=== PATIENT | male | born 1945 | race Caucasian/White ===

== ENCOUNTER 2021-07-29 11:48 | Outpatient (CLI) | payer OTHER, SELFPAY ==
[2021-07-29 01:33] VITALS: BP 110/75; PULSE 88; RESP 18; TEMP 36.8; O2SAT 90
[2021-07-29 12:30] VITALS: BP 130/85; PULSE 59; RESP 16; TEMP 36.8; O2SAT 91; BMI 22.3
[2021-07-29 12:33] VITALS: BP 122/71; PULSE 89; RESP 18; TEMP 36.8; O2SAT 92
== END 2021-07-29 11:49 | disposition home or self-care (01) ==
LOC: OPS 11:54
PROVIDERS: Visit Provider Internal Medicine
DX: U07.1 COVID-19 (principal)
CPT/HCPCS: 96365

== ENCOUNTER 2021-09-25 08:06 | Inpatient (IN) | payer OTHER, MEDICARE, SELFPAY ==
[2021-09-25] VITALS (16 sets, daily range): BP systolic 122–155; BP diastolic 56–89; PULSE 89–91; RESP 11–26; TEMP 36.7; O2SAT 90–100; BMI 23.1
--- NOTE | 2021-09-25 08:07 | W.ED.SOB ---
HPI - SOB/Dyspnea General: Chief Complaint: ER Hold Stated Complaint: LOW O2 SATS Time Seen by Provider: 09/25/21 08:07 History of Present Illness: HPI Narrative: Mr Abdi is a 76-year-old gentleman with history of CAD, hypertension, hyperlipidemia, history of CABG who resides at a long term facility presents emergency department due to generalized symptoms. He reports that he overall does not feel well. He has difficulty reporting exactly how long this has been going on for but he thinks probably few weeks and has been gradual in onset. Today he was found to be hypoxemic on room air with oxygen saturation of 82% and cyanosis. He was placed on 4 L of oxygen, which he does not typically wear, which improved his oxygen saturation. Other than the generalized symptoms he does not report any other significant changes in health with exception of right neck swelling. Perhaps mild shortness of breath without cough. No fevers or chills. The patient has had increased falls of unclear circumstances. No other specific changes in health, exacerbating, relieving factors identified. Pertinent past history: other Onset (ago): week(s) Severity: moderate Known history of: other Review of Systems General: Reports: 10 or more systems reviewed and unremarkable except in HPI and below PFSH ED PFSH: Medical History (Updated 09/25/21 @ 19:07 by Tl Cifuentes MD) Aortic valve disease CAD (coronary artery disease) HLD (hyperlipidemia) HTN (hypertension) Surgical History (Updated 09/25/21 @ 19:04 by Tl Cifuentes MD) Aortic valve replaced History of cholecystectomy Hx of CABG Social History Smoking and tobacco status: former smoker Physical Exam Const: COMMON NORMALS: alert GENERAL APPEARANCE: cooperative and well developed HENMT: COMMON NORMALS: normocephalic and atraumatic HEAD & SCALP: normocephalic and atraumatic THROAT: posterior oropharynx normal Eye: COMMON NORMALS: conjunctivae normal CONJUNCTIVA: Yes conjunctivae normal SCLERA: sclerae normal OTHER: R eye prosthesis Neck/C-Spine: COMMON NORMALS: supple GENERAL: Yes trachea midline OTHER: Patient does have JVD, mild, no other appreciable specific masses or asymmetry noted Resp: COMMON NORMALS: normal respiratory effort EFFORT & INSPECTION: Yes able to speak in complete sentences AUSCULTATION: diminished lung sounds Cardio: COMMON NORMALS: regular rate and regular rhythm RATE: regular rate RHYTHM: regular rhythm GI: COMMON NORMALS: Soft to palpation PALPATION: Yes Soft to palpation and No Tenderness to palpation present (GI) PERCUSSION: normal to percussion Extremity: GENERAL: Yes normal exam except as noted and No edema Neuro: COMMON NORMALS: moves all extremities SENSORIUM/ORIENTATION: Yes alert and No Orientation impaired Psych: COMMON NORMALS: mental status grossly normal and Normal thought process present THOUGHT PROCESS: Normal thought process present Course ED course: - Patient was seen and evaluated by me at bedside - Patient placed on cardiac monitors, IV access obtained - Initial evaluation notable for exam as above, supplemental oxygen with increased work of breathing - Labs notable for concerning findings. There is no leukocytosis and hemoglobin is normal. Metabolic panel with fairly significant derangements, sodium is mildly low, potassium is mildly elevated and bicarb is mildly decreased. Creatinine is elevated at 1.4 with unclear baseline. Transaminitis of unclear significance. Initial troponin is elevated and BNP is elevated. Procalcitonin is negative. - Imaging notable for no acute findings on head CT or cervical spine CT which were obtained given report of possible multiple falls that the patient does not have clear recollection of. Chest x-ray without acute abnormality. Given laboratory study abnormalities including transaminitis I started further evaluation with ultrasound which did not reveal obvious cause, patient has had cholecystectomy. No clear cause for transaminitis and no clear cause identified thus far for hypoxemia therefore additional CT imaging was warranted and obtained. No evidence of pulmonary embolism. The patient does have evidence of volume overload including bilateral pleural effusions which were not appreciated on chest x-ray. - The patient experience challenging ED course with refusal of multiple tests. I discussed at length the results of ED evaluation and initially strongly recommended admission and further testing given the patient's elevated troponin, evidence of fluid overload, new oxygen requirement, and transaminitis of unclear etiology. Initially the patient was adamantly against being admitted. I had extensive discussion with him regarding risks and benefits, while I do believe that the patient has some degree of age-related cognitive decline ultimately I believe that he does have capacity to make medical decisions. He participates meaningfully in conversations. He has logical questions and understands answers. He appears to be able to integrate information correctly. He recalls conversations from earlier in ED course and integrates this information. Thought process linear and goal oriented. Furthermore, in order to perform additional laboratory studies and imaging, I would likely have to chemically restrain the patient which I do not believe is appropriate in this scenario given my experience with the patient. - The patient planned to leave AGAINST MEDICAL ADVICE. - During process of working on transporting patient back to his care facility he talked with a friend and subsequently agreed to be admitted and was agreeable for further testing. Delta troponin is pending at time of admission. - Upon serial reexamination after treatment the patient was similar - Based on patient history, evaluation, labs, and imaging as interpreted the most likely cause of the patient's condition is multifactorial. I believe that the majority of his abnormalities are likely secondary to peripheral volume overload as he has anasarca and pleural effusions in the context of new oxygen requirement. He did endorse that he took himself off of his Lasix about 1 week ago. I ordered acute hepatitis studies which are pending at time of admission. Etiology of transaminitis may be more likely related to a hepatorenal or cardio hepatorenal type picture though blood pressure is adequate and has been throughout entirety of ED evaluation, perhaps patient is mildly intravascularly depleted even though he is overall fluid up. - The results of ED evaluation were discussed with the patient including plan for admission due to requirement for level of care not available if discharged to prevent significant worsening/deterioration. - Admitting service was contacted and Dr Cifuentes with the hospitalist service agreed to admit the patient - Patient was admitted without further deterioration or significant events. Note: Click bubbles or prepopulated bonds in note writing are used for assistance with data collection and billing and are inherently more limited than narrative and other text portions of this note. Please use narrative for additional clinical history and defer to narrative/free test for any case of contradictory information. If information appears in only free text or click bubble it should be considered present or absent as reported. Please contact note telegraphic typewriter operator chief for clarifications of clinical information or contradictory information. MDM is a brief summary, contradictory or erroneous seeming information should be clarified and full note should be reviewed. Vital Signs: Vital signs: Vital Signs Temperature 98.1 F 09/25/21 08:08 Pulse Rate 95 09/26/21 12:53 Respiratory Rate 16 09/26/21 12:53 Blood Pressure 147/73 09/26/21 12:53 Pulse Oximetry 95 09/26/21 12:53 MDM - SOB/Dyspnea Medical Decision Making 76-year-old gentleman with history of hypertension, hyperlipidemia, CAD, heart failure who took himself off Lasix about 1 week ago presenting with new oxygen requirement in addition to falls and other concerns. Overall very challenging ED encounter, laboratory studies notable for likely ASHLEE, transaminitis, elevated troponin, and evidence of volume overload. Patient initially did express desire to leave AMA however subsequently was agreeable to admission. He was admitted to the hospital for further management, I believe overall abnormalities are related to volume overload. Medical Records I reviewed the patient's medical records. Lab Data I reviewed the patient's lab results. : 09/26/21 07:40 09/26/21 07:40 Labs/Radiology: Radiology Impressions Chest X-Ray 09/25/21 08:24 IMPRESSION: No acute chest abnormality. Cervical Spine CT 09/25/21 08:25 IMPRESSION: 1. No evidence of acute fracture or dislocation. 2. Left pericentral protrusion C5-C6 with moderate central canal stenosis. 3. Mild spondylitic changes. Head CT 09/25/21 08:25 IMPRESSION: 1. No evidence of intracranial hemorrhage or mass effect. 2. Moderate small vessel changes with moderate parenchymal volume loss. 3. 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 4. Bilateral scleral banding. Right globe prosthesis. 5. No acute intracranial findings. Abdomen Ultrasound 09/25/21 11:13 IMPRESSION: 1. Status post cholecystectomy. 2. Very small amount of free fluid adjacent to the liver and spleen and a small RIGHT pleural effusion. 3. Bilateral renal cysts. Chest/Abdomen/Pelvis CT 09/25/21 13:01 IMPRESSION: 1. No evidence of pulmonary embolus. 2. Small bilateral pleural effusions and compressive atelectasis in the lung bases. Recommend correlation for pneumonia. 3. Cardiomegaly. 4. Cirrhotic configuration to the liver with hepatomegaly. Prior cholecystectomy. 5. Large right renal cyst measuring 8.1 x 9.0 CM. No hydronephrosis. 6. Dense vascular calcification involving the abdominal aorta. No aneurysm. 7. Mild prostate enlargement measuring 4.2 CM. 8. Small amount of free fluid in the pelvis with diffuse body wall anasarca. 9. Enlarged anterior mediastinal, peribronchial and hilar lymph nodes nonspecific but may be reactive. Laboratory Results WBC 6.5 10^3/uL (4.0-10.0) 09/26/21 07:40 RBC 4.11 10^6/uL (4.1-5.3) 09/26/21 07:40 Hgb 12.2 g/dL (11.7-16.6) 09/26/21 07:40 Hct 40.0 % (42.0-52.0) L 09/26/21 07:40 MCV 97.3 fl (80-94) H 09/26/21 07:40 MCH 29.7 pg (28.0-34.0) 09/26/21 07:40 MCHC 30.5 g/dL (30.0-36.0) 09/26/21 07:40 RDW 16.0 % (12.1-15.1) H 09/26/21 07:40 Plt Count 180 10^3/cmm (130-400) 09/26/21 07:40 MPV 10.7 fL (7.4-10.4) H 09/26/21 07:40 Neut % (Auto) 79.6 % 09/26/21 07:40 Lymph % (Auto) 8.0 % 09/26/21 07:40 [place]aves % (Auto) 9.3 % 09/26/21 07:40 Eos % (Auto) 1.7 % 09/26/21 07:40 Baso % (Auto) 0.8 % 09/26/21 07:40 Neut # (Auto) 5.20 10^3/uL (1.8-7.7) 09/26/21 07:40 Lymph # (Auto) 0.5 10^3/uL (0.8-4.8) L 09/26/21 07:40 Chaves # (Auto) 0.6 10^3/uL (0.2-0.9) 09/26/21 07:40 Eos # (Auto) 0.1 10^3/uL (0.0-0.8) 09/26/21 07:40 Baso # (Auto) 0.1 10^3/uL (0.0-0.1) 09/26/21 07:40 Nucleated RBC % (auto) 0 % 09/26/21 07:40 Nucleated RBCs # 0.0 /100WBC 09/26/21 07:40 Sodium 140 mmol/L (136-145) 09/26/21 07:40 Potassium 3.8 mmol/L (3.5-5.1) 09/26/21 07:40 Chloride 103 mmol/L (98-107) 09/26/21 07:40 Carbon Dioxide 27 mmol/L (22-29) 09/26/21 07:40 Anion Gap 13.8 (5-19) 09/26/21 07:40 BUN 31 mg/dL (8-23) H 09/26/21 07:40 Creatinine 0.8 mg/dL (0.7-1.2) 09/26/21 07:40 GFR Calculation Not Reportable 09/26/21 07:40 Glucose 111 mg/dL (65-115) 09/26/21 07:40 Calculated Osmolality 297 mOsm/kg (285-295) H 09/26/21 07:40 Calcium 7.9 mg/dL (8.5-10.5) L 09/26/21 07:40 Total Bilirubin 0.8 mg/dL (0.15-1.2) 09/26/21 07:40 AST 149 U/L (0-40) H 09/26/21 07:40 ALT 282 U/L (0-41) H 09/26/21 07:40 Alkaline Phosphatase 74 IU/L (40-130) 09/26/21 07:40 Ammonia 20 umol/L (16-60) 09/25/21 19:00 Troponin T Gen 5 ng/L 113 ng/L (0-15) H* 09/26/21 07:40 Troponin T Baseline 101 ng/L (0-15) H* 09/25/21 09:23 C-Reactive Protein 18.2 mg/L (0.0-4.9) H 09/25/21 09:23 NT-Pro-B Natriuret Pep 22721 pg/mL (0-450) H 09/25/21 09:23 Total Protein 6.0 g/dL (6.6-8.7) L 09/26/21 07:40 Albumin 3.6 g/dL (3.5-5.2) 09/26/21 07:40 Globulin 2.4 g/dL (1.3-4.6) 09/26/21 07:40 Lipase 19 U/L (13-60) 09/25/21 09:23 Procalcitonin 0.17 ng/mL (0-0.5) 09/25/21 09:23 TSH 4.94 uIU/mL (0.27-4.20) H 09/25/21 09:23 Free T4 1.03 ng/dL (0.82-1.77) 09/25/21 09:23 Urine Color Colorless (Yellow) 09/26/21 05:48 Urine Appearance Clear (CLEAR) 09/26/21 05:48 Urine pH 5 (5-7) 09/26/21 05:48 Ur Specific [place] 1.010 (1.005-1.030) 09/26/21 05:48 Urine Protein Neg (Negative) 09/26/21 05:48 Urine Glucose (UA) Norm (Normal) 09/26/21 05:48 Urine Ketones Negative (Negative) 09/26/21 05:48 Urine Blood Neg (Negative) 09/26/21 05:48 Urine Nitrate Negative (Negative) 09/26/21 05:48 Urine Bilirubin Neg (Negative) 09/26/21 05:48 Urine Urobilinogen Norm mg/dL (Negative) 09/26/21 05:48 Ur Leukocyte Esterase Negative (Negative) 09/26/21 05:48 Ur Random Urea Nitrogn 156 mg/dL 09/26/21 05:48 Urine Creatinine 10 mg/dL (39-259) L 09/26/21 05:48 Coronavirus 229E (PCR) Not detected (NOT DETECT) 09/25/21 08:50 Hepatitis A IgM Ab Non-reactive (Nonreactive) 09/25/21 09:23 Hep Bs Antigen Non-reactive (Nonreactive) 09/25/21 09:23 Hep B Core IgM Ab Non-reactive (Nonreactive) 09/25/21 09:23 Hepatitis C Antibody Non-reactive (Nonreactive) 09/25/21 09:23 SARS-CoV-2 (PCR) Not detected (NOT DETECT) 09/25/21 08:50 EKG Data EKG 1: I personally reviewed and interpreted this EKG as follows: EKG Interpretation Date: 09/25/21 EKG interpretation time: 08:53 Interpretation: Twelve-lead EKG shows a regular rhythm at a rate of 89. MN interval not present, QRS duration 149. Abnormal axis. Interpretation: Ventricularly paced rhythm EKG 2: I personally reviewed and interpreted this EKG as follows: EKG Interpretation Date: 09/25/21 EKG interpretation time: 10:40 Interpretation: Twelve-lead EKG shows a regular rhythm at a rate of 89. MN interval not present, QRS duration 147, QRS duration 469. Abnormal axis. Interpretation: Electronically paced rhythm EKG 3: I personally reviewed and interpreted this EKG as follows: EKG Interpretation Date: 09/25/21 EKG interpretation time: 14:25 Interpretation: Twelve-lead EKG shows a regular rhythm at a rate of 89. No MN interval, constriction 156, QTc 470. Abnormal axis Interpretation: Ventricularly paced rhythm Critical Care Time Critical Care Time: Critical Care Time: Yes Total Critical Care Time: 35 Attestation: Due to a high probability of clinically significant, possibly life threatening deterioration, the patient required my highest level of attention and preparedness to intervene emergently and I personally spent this critical care time directly and personally managing the patient. This critical care time included obtaining a history; examining the patient; pulse oximetry; ordering and review of laboratory and imaging studies; arranging urgent treatment with development of a management plan; evaluation of patient's response to treatment; frequent reassessment; and, discussions with other providers as applicable. It was exclusive of separately billable procedures. Discharge Plan Discharge Patient Disposition: Left Against Medical Advice Clinical Impression: Hyponatremia, Hyperkalemia, Creatinine elevation, Transaminitis, Elevated troponin, CRP elevated, Elevated TSH, Cervical spinal stenosis, Pleural effusion, bilateral, Cirrhosis, Renal cyst, Enlarged prostate, Anasarca, Hypoxia, Lymphadenopathy Condition: Stable Discharge Orders: Discharge Order (Routine); Ordered 09/26/21 Ordered By: Tl Cifuentes Discharge ED (Routine); Ordered 09/26/21 Ordered By: Tl Cifuentes Discharge Diet: Cardiac Discharge Activity: Resume usual activity Coding Level of Care Code ED Sub Acute Care Nurse for Chg Fwd Exam Comprehensive
--- NOTE | 2021-09-25 08:24 | ECG_ITS ---
[facility] Test Date: 2021-09-25 Pat Name: Jon Abdi Department: Room: Gender: Male Waitress: : 1945 Requested By: Dre Taylor Order Number: [id number] Frankie MD: Monico Root M.D. Measurements Intervals [place] Rate: 89 P: NH: QRS: 219 QRSD: 149 T: 52 QT: 412 QTc: 503 Interpretive Statements ELECTRONIC VENTRICULAR PACEMAKER ABNORMAL RHYTHM ECG No previous ECG available for comparison Electronically Signed On 09-25-2021 18:30:36 DIGITAL ADVERTISING ANALYST by Monico Root M.D. [id number]
--- NOTE | 2021-09-25 08:24 | XR_ITS ---
WS: [id number] XR chest 1V portable [id number] REASON FOR EXAM: hypoxia FINDINGS: Cardiac device in place over the left chest with leads to the right atrium and right ventricular apex . Moderate tortuosity the thoracic aorta without aneurysmal dilatation. Cardiomegaly. Calcified granulomatous disease in both hemithoraces. No acute pulmonary parenchymal or pleural abnormality. XR/XR chest 1V portable [id number] IMPRESSION: No acute chest abnormality.
--- NOTE | 2021-09-25 08:25 | CT_ITS ---
WS: [id number] CT CERVICAL TRAUMA TECHNIQUE: Noncontrast CT of the cervical spine with coronal and sagittal reformatted images. CLINICAL INFORMATION: falls, memory disturbance COMPARISON: None. DLP: 1127.[address] scans at [facility] use at least one of these dose optimization techniques: automated e xposure control; mA and/or kV adjustment per patient size (includes targeted exams where dose is matc hed to clinical indication); or iterative reconstruction. FINDINGS: Straightening of the normal cervical lordosis. Mild spondylitic changes. Small disc osteophyte comple xes at C3-C4 and C5-C6 and C6-C7. Left pericentral protrusion C5-C6 with mild/moderate central canal stenosis. Normal craniocervical junction. Normal C1-C2 articulation. Dens is normal in appearance. No rmal occipital condyles. Normal C1 ring. No evidence of acute fracture or dislocation. Normal prevertebral soft tissues. Right thyroid nodule the largest measuring 10 mm. Mastoids air cells are well aerated. CT/CT cervical spin wo con* [id number] IMPRESSION: 1. No evidence of acute fracture or dislocation. 2. Left pericentral protrusion C5-C6 with moderate central canal stenosis. 3. Mild spondylitic changes.
--- NOTE | 2021-09-25 08:25 | CT_ITS ---
WS: [id number] CT HEAD TECHNIQUE: Noncontrast CT of the head obtained from the skullbase to the vertex. CLINICAL INFORMATION: falls, memory disturbance COMPARISON: None. DLP: 997.[address] scans at [facility] use at least one of these dose optimization techniques: automated e xposure control; mA and/or kV adjustment per patient size (includes targeted exams where dose is matc hed to clinical indication); or iterative reconstruction. FINDINGS: No evidence of intracranial hemorrhage or mass effect. Ventricular system and basal cisterns are salmon nt. Moderate small vessel changes with moderate parenchymal volume loss. Tiny chronic lacunar infarct s bilateral basal ganglia and right thalamus. Intracranial vascular calcification. Right globe prosth esis. Paranasal sinuses and mastoid air cells are well aerated. CT/CT head wo con* [id number] IMPRESSION: 1. No evidence of intracranial hemorrhage or mass effect. 2. Moderate small vessel changes with moderate parenchymal volume loss. 3. 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 4. Bilateral scleral banding. Right globe prosthesis. 5. No acute intracranial findings.
[2021-09-25 08:42] LABS: Basophils # 0.1 10^3/uL (0.0-0.1); Basophils % 0.6 %; Eosinophils % 0.2 %; Hematocrit 44.6 % (42.0-52.0); Hemoglobin 13.5 g/dL (11.7-16.6); Lymphocytes # 0.8 10^3/uL (0.8-4.8); Lymphocytes % 9.2 %; Mean Corpuscular HGB Conc 30.3 g/dL (30.0-36.0); Mean Corpuscular Hemoglobin 29.3 pg (28.0-34.0); Mean Corpuscular Volume 96.7 fl (80-94); Mean Platelet Volume 11.2 fL (7.4-10.4); Monocytes # 0.8 10^3/uL (0.2-0.9); Monocytes % 9.3 %; Neutrophils % 80.1 %; Nucleated Red Blood Cells % 0 %; Platelet Count 229 10^3/cmm (130-400); Red Blood Count 4.61 10^6/uL (4.1-5.3); Red Cell Distribution Width 16.4 % (12.1-15.1); White Blood Count 8.5 10^3/uL (4.0-10.0)
[2021-09-25 10:14] LABS: NT Pro B Type Natriuretic Pept 13309 pg/mL (0-450); Procalcitonin 0.17 ng/mL (0-0.5); Thyroid Stimulating Hormone 4.94 uIU/mL (0.27-4.20)
[2021-09-25 10:23] LABS: Troponin(5th) Baseline 101 ng/L (0-15)
--- NOTE | 2021-09-25 10:24 | ECG_ITS ---
[facility] Test Date: 2021-09-25 Pat Name: Jon Abdi Department: Room: Gender: Male General Practitioner: : 1945 Requested By: Dre Taylor Order Number: [id number] David MD: Monico Root M.D. Measurements Intervals [place] Rate: 89 P: HI: QRS: 216 QRSD: 147 T: 50 QT: 422 QTc: 515 Interpretive Statements ELECTRONIC VENTRICULAR PACEMAKER ABNORMAL RHYTHM ECG Compared to ECG 09/25/2021 08:49:28 No significant changes Electronically Signed On 09-25-2021 18:35:15 SALE PROFESSIONAL DIGITAL MARKETING by Monico Root M.D. [id number]
[2021-09-25 10:25] LABS: Alanine Aminotransferase 462 U/L (0-41); Albumin Level 3.9 g/dL (3.5-5.2); Alkaline Phosphatase 79 IU/L (40-130); Anion Gap 18.5 (5-19); Aspartate Amino Transferase 422 U/L (0-40); Blood Urea Nitrogen 39 mg/dL (8-23); C Reactive Protein 18.2 mg/L (0.0-4.9); Calcium 9.5 mg/dL (8.5-10.5); Carbon Dioxide 19 mmol/L (22-29); Chloride 101 mmol/L (98-107); Globulin 2.5 g/dL (1.3-4.6); Glucose 150 mg/dL (65-115); Osmolality Calculated 288 mOsm/kg (285-295); Potassium 5.5 mmol/L (3.5-5.1); Sodium 133 mmol/L (136-145); Total Bilirubin 0.9 mg/dL (0.15-1.2); Total Protein 6.4 g/dL (6.6-8.7)
[2021-09-25] MEDS: aspirin 81 mg Chew Tablet 324 MG PO (10:31)
[2021-09-25 11:12] LABS: Free T4 Free Thyroxine 1.03 ng/dL (0.82-1.77)
--- NOTE | 2021-09-25 11:13 | US_ITS ---
WS: [id number] Complete ABDOMINAL ULTRASOUND HISTORY: RUQ, biliary COMPARISON: None available. Liver: 16.1 cm in length. Liver normal size. Very minimal coarse echotexture. 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 No mass or bile duct dilatation. There is a small amount of fluid adjacent to the liver wit hin the RIGHT pleural space. Portal Vein: Normal hepatopetal flow with mildly undulating waveform. Gallbladder: Prior cholecystectomy. Pancreas: Completely obscured by bowel gas. CBD: 0.4 cm. Right kidney: 11.6 cm x 5.1 cm x 5.7 cm. Normal size kidney. There are multiple cysts within the kid caridad. The largest from the lower pole measures 8.9 x 9.2 x 9.3 cm. No solid mass or obstruction. Left kidney: 11.7 cm x 4.2 cm x 5.5 cm. Normal size kidney with no hydronephrosis. Small renal cyst measures 1.8 x 1.3 x 1.4 cm. Spleen: Normal size spleen with a small amount of adjacent free fluid. Abdominal aorta and IVC are within normal limits. US/US abdomen complete* [id number] IMPRESSION: 1. Status post cholecystectomy. 2. Very small amount of free fluid adjacent to the liver and spleen and a smal l RIGHT pleural effusion. 3. Bilateral renal cysts.
[2021-09-25 11:24] LABS: Adenovirus Not Detected (NOT DETECT); Chlamydia Pneumoniae Not Detected (NOT DETECT); Coronavirus 229E,HKU1,NL63,OC4 Not Detected (NOT DETECT); Human Metapneumovirus Not Detected (NOT DETECT); Human Rhinovirus/Enterovirus Not Detected (NOT DETECT); Influenza A Not Detected (NOT DETECT); Influenza A H1 Not Detected (NOT DETECT); Influenza A H1-2009 Not Detected (NOT DETECT); Influenza A H3 Not Detected (NOT DETECT); Influenza B Not Detected (NOT DETECT); Mycoplasma Pneumoniae Not Detected (NOT DETECT); Parainfluenza Virus Type 1 Not Detected (NOT DETECT); Parainfluenza Virus Type 2 Not Detected (NOT DETECT); Parainfluenza Virus Type 3 Not Detected (NOT DETECT); Parainfluenza Virus Type 4 Not Detected (NOT DETECT); Respiratory Syncytial Virus A Not Detected (NOT DETECT); Respiratory Syncytial Virus B Not Detected (NOT DETECT); SARS-COV-2 Not Detected (NOT DETECT)
[2021-09-25 11:42] LABS: Lipase 19 U/L (13-60)
[2021-09-25] MEDS: sodium chloride 0.9% 1,000 ML 999 ML IV (12:22)
--- NOTE | 2021-09-25 13:01 | CT_ITS ---
WS: [id number] CTA CHEST WITH ABDOMEN AND PELVIS TECHNIQUE: Contrast enhanced CTA of the chest, abdomen, and pelvis with coronal and sagittal reformat roman images and additional MIP Images. CLINICAL INFORMATION: shortness of breath, elevated trop, transaminitis COMPARISON: None. DLP: 2153.[address] scans at [facility] use at least one of these dose optimization techniques: automated e xposure control; mA and/or kV adjustment per patient size (includes targeted exams where dose is matc hed to clinical indication); or iterative reconstruction. FINDINGS: Proximal main pulmonary arteries are normal. Segmental and subsegmental pulmonary arteries appear nor mal. No evidence of pulmonary embolus. Normal caliber thoracic aorta. Aortic calcification. Sternotom y with CABG. Cardiac pacer. Enlarged anterior mediastinal and peribronchial lymph nodes. Slightly enl arged hilar lymph nodes. No axillary lymphadenopathy. Cardiomegaly. Moderate to advanced chronic emphysematous changes. Small bilateral pleural effusions w ith compressive atelectasis in the lung bases. Recommend correlation for pneumonia. Mild thoracic kyp hosis with hypertrophic changes. Hepatomegaly with cirrhotic configuration to the liver. Mild intrahepatic biliary ductal dilatation. Prior cholecystectomy. Normal spleen. Perihepatic and perisplenic ascites. Fatty atrophy of the pancr eas. Splenic artery calcification. Dense aortic calcification. Normal caliber abdominal aorta. Celiac and SMA appear patent with dense calcification at the origins. Adrenal glands are normal. Normal beatrice al parenchymal enhancement. No hydronephrosis. Bilateral renal cysts the largest in the mid right kid caridad anteriorly measuring 8.1 x 9.1 CM. Mild diffuse body wall anasarca. Mild prostate enlargement measuring 4.2 CM. Mild thickening of the s eminal vesicles bilaterally. Small amount of free fluid in the pelvis. No evidence of high-grade smal l or large bowel obstruction. Small fat-containing umbilical hernia with a small amount of induration /fat necrosis. No herniated bowel. Hypertrophic changes lumbar spine. Mild lumbar curve. CT/CT angio chest w abd pel w con IMPRESSION: 1. No evidence of pulmonary embolus. 2. Small bilateral pleural effusions and compressive atelectasis in the lung b ases. Recommend correlation for pneumonia. 3. Cardiomegaly. 4. Cirrhotic configuration to the liver with hepatomegaly. Prior cholecystecto my. 5. Large right renal cyst measuring 8.1 x 9.0 CM. No hydronephrosis. 6. Dense vascular calcification involving the abdominal aorta. No aneurysm. 7. Mild prostate enlargement measuring 4.2 CM. 8. Small amount of free fluid in the pelvis with diffuse body wall anasarca. 9. Enlarged anterior mediastinal, peribronchial and hilar lymph nodes nonspeci fic but may be reactive.
[2021-09-25] MEDS: iodixanol 320 mg/mL 100mL Btl IV ×2 (14:09)
--- NOTE | 2021-09-25 14:24 | ECG_ITS ---
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 Measurements Intervals [place] Rate: 89 P: HI: QRS: 229 QRSD: 156 T: 52 QT: 423 QTc: 516 Interpretive Statements ELECTRONIC VENTRICULAR PACEMAKER ABNORMAL RHYTHM ECG Compared to ECG 09/25/2021 10:35:26 No significant changes Electronically Signed On 09-25-2021 18:32:55 RECYCLING OPERATOR by Monico Root M.D. [email or web address]
[2021-09-25] MEDS: FUROsemide 10 mg/mL SDV 4mL 40 MG IVP (16:03)
--- NOTE | 2021-09-25 17:17 | PC.NURSE ---
REPORT TO JUANI MCCOLLUM - LEFT MESSAGE WITH ELMER-FAMILY FRIEND
--- NOTE | 2021-09-25 17:50 | PC.NURSE ---
SPOKE WITH ELMER- SHE IS NOT ABLE TO COME GET HIM- ELMER WILL CALL [facility] AND SEE WHY SHE WAS NOT CONTACTED BY [facility]- ELMER WILL CALL BACK TO TALK WITH THE PATIENT
--- NOTE | 2021-09-25 18:11 | PC.NURSE ---
REPORT AND UPDATE TO JUAN CARLOS AT [facility].
--- NOTE | 2021-09-25 18:51 | P.HP_ITS ---
Providers/Chief Complaint Chief Complaint: LOW O2 SATS History of Present Illness 76-year-old gentleman [facility] resident with history of CAD, stenting, CABG, aortic valve replacement, pacemaker, previously following with cardiology in [place], but not recently, was brought for evaluation due to feeling unwell, with shortness of breath, orthopnea, in ER noted hypoxic, 82% on room air requiring 4 L of oxygen supplementation. He reports he does use oxygen chronically at the [facility], 2 L. He is afebrile, without leukocytosis. PCR COVID-19 negative. Also with noted mild hyponatremia, 133, potassium 5.5, creatinine 1.4 with unknown recent baseline, although he reports has never had any problems with his kidneys, as well as noted AST and ALT elevation 422, 462 respectively. Troponin at baseline 101, NT proBNP 13,309. CRP 18.2. TSH 4.94. Normal free T4. Pending hepatitis panel. Reported increasing falls. Additional imaging was performed with CT angiogram chest as well as CT abdomen pelvis, no finding of PE, small bilateral pleural effusions and compressive atelectasis, correlate for possible pneumonia. Cardiomegaly. 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 Large right renal cyst measuring 8.1 x 9 cm no hydronephrosis. Dense vascular calcification involving abdomen aorta. No aneurysm. Mild proximal enlargement measuring 4.2 cm. Small amount of free fluid in pelvis with diffuse body wall anasarca. Enlarged anterior mediastinal, peribronchial and hilar lymph nodes nonspecific but may be reactive. Additional imaging with abdominal ultrasound, status post cholecystectomy, normal size liver, minimal coarse echotexture. Portal triads still evident. Small amount of fluid adjacent to the liver within the right pleural space. Head CT with no evidence of intracranial hemorrhage or mass-effect. Moderate s mall vessel changes with moderate parenchymal volume loss. 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 Bilateral scleral banding. Right globe prosthesis. No acute intracranial findings. CT C-spine without evidence of acute fracture dislocation, left paracentral protrusion C5-C6. Moderate central canal stenosis. Mild spondylitic changes. Other history reports is transient swelling on the right side of his neck which resolved spontaneously. Not currently present. She also reports that his sister had called [facility] and told him that he has dementia, although he says he does not and that she likely has more problems than he does. Review of Systems Const: Denies: fever(s), chills, body aches or malaise Eyes: Denies: change in vision or eye redness ENMT: Denies: throat pain, oral sores or ear or mastoid pain Card: Denies: chest pain, edema, pre-syncope or dyspnea on exertion Resp: Denies: dyspnea, productive cough, change in phlegm color or hemoptysis GI: Denies: abdominal pain, nausea, vomiting, diarrhea, constipation, hematochezia or melena : Denies: flank pain, difficulty urinating, urinary frequency or hematuria Musc: Denies: back pain, joint swelling or joint redness Skin/Breast: Denies: rash, sores or new lesions Neuro: Denies: headache(s), numbness in extremities, weakness in extremities, dizziness, confusion or seizure-like activity Endo: Denies: polyuria or polydipsia Liam/Lymph: Denies: easy bleeding or purpura All/Imm: Denies: urticaria, throat swelling or tongue swelling Medications/Allergies Home Medications Medication Instructions Recorded Confirmed Last Taken Type acetaminophen 325 mg tablet 325 mg PO Q4H PRN 09/25/21 09/25/21 Unknown History bisacodyl 10 mg rectal suppository 10 mg [place] DAILY PRN 09/25/21 09/25/21 Unknown History furosemide 40 mg tablet (Lasix) 40 mg PO BID 30 Days #60 tab 09/25/21 Unknown Rx ondansetron HCl 4 mg tablet 4 mg PO Q8H PRN 09/25/21 09/25/21 09/23/21 History (Zofran) potassium chloride 20 mEq 20 meq PO DAILY #30 tab 09/25/21 Unknown Rx tablet,extended release(part/cryst) (Klor-Con M) tamsulosin 0.4 mg capsule (Flomax) 0.4 mg PO DAILY 09/25/21 09/25/21 09/24/21 History Allergies Allergy/AdvReac Type Severity Reaction Status Date / Time Penicillins Allergy Unknown Verified 07/29/21 12:29 PFSH Acute PFSH: Medical History (Updated 09/25/21 @ 19:07 by Tl Cifuentes MD) Aortic valve disease CAD (coronary artery disease) HLD (hyperlipidemia) HTN (hypertension) Surgical History (Updated 09/25/21 @ 19:04 by Tl Cifuentes MD) Aortic valve replaced History of cholecystectomy Hx of CABG Social History Smoking and tobacco status: former smoker Vitals/I&O/Wt Last Vital Signs Temp 98.1 F 09/25/21 08:08 Pulse 90 09/25/21 13:30 Resp 20 H 09/25/21 13:30 BP 136/87 09/25/21 13:30 Pulse Ox 94 09/25/21 13:30 Weight last 48 hrs Weight 63.049 kg Physical Exam Const: COMMON NORMALS: no acute distress and patient oriented x3 (Names the year, but had to correct himself) HENMT: COMMON NORMALS: oropharynx normal Neck/C-Spine: COMMON NORMALS: no JVD Resp: COMMON NORMALS: normal respiratory effort and clear to auscultation bilaterally AUSCULTATION: clear to auscultation bilaterally Cardio: COMMON NORMALS: no JVD, regular rhythm, S1 normal heart sound present, S2 normal heart sound present and No murmurs present (Cardio) RHYTHM: regular rhythm HEART SOUNDS: S1 normal heart sound present and S2 normal heart sound present GI: COMMON NORMALS: Normal to inspection, nondistended, normoactive bowel sounds present, Soft to palpation and non-tender PALPATION: Yes Soft to palpation Extremity: COMMON NORMALS: no joint enlargement GENERAL: Yes edema (1+) Neuro: COMMON NORMALS: patient oriented x3 and moves all extremities Skin: COMMON NORMALS: no rashes or lesions noted GENERAL SKIN EXAM: no rashes or lesions noted OTHER: Dry Data : 09/25/21 08:30 09/25/21 09:23 A&P Assessment and plan (1) Diastolic CHF: With generalized weakness, orthopnea, possibly right-sided heart failure with ASHLEE, congestive hepatopathy possibly as well with transaminitis. IV Lasix 40 mg twice daily. Monitor I&O, weights. Renal function. Assess with TTE. Denies chest pain or pressure, although troponin is abnormal. Complete troponin and EKG series. Status: Acute (2) Elevated troponin: Complete troponin EKG series. Denies chest pain or pressure. No PE on CTA. Reports history of CAD, stenting. Reported history of CABG. Assess TTE. Aspirin, statin. Used to follow with cardiology. BB Status: Acute (3) ASHLEE (acute kidney injury): Possibly secondary to right heart failure. No hydronephrosis noted. Request urine studies. Diuresis as above. Monitor I&O and renal function. Status: Acute (4) Transaminitis: Follow-up hepatitis panel. Possibly congestive hepatopathy secondary to CHF, possibly right heart failure. Would expect improvement with diuresis. Monitor levels. He also states that he has been taking 6-8 tablets of Tylenol a day. Discussed with him to avoid doses more than 2000 mg/day. He is not sure of the strength of the tablets. Tells me he has been taking this may be in the last few days, not chronically. Possible early cirrhosis or fibrosis of the liver based on appearance on CT. Ultrasound with some coarse echogenicity. Check ammonia. Will need additional outpatient follow-up. Status: Acute (5) Hyperkalemia: Low potassium diet. Diuresis with Lasix as above. Hold potassium supplement. Status: Acute (6) Hyponatremia: Status: Acute (7) Orthopnea: With acute decompensation of CHF. As above. Status: Acute Plan CAD History of aortic valve replacement: Bioprosthetic valve noted on TTE from 2014. Resume aspirin. HTN HLD BPH Recent transient right neck swelling which resolved spontaneously Attestations Medical Necessity Statement*: Admission of over 2 midnights is anticipated for assessment management of acute CHF, with ASHLEE, transaminitis and gentleman with known underlying CAD, aortic valve replacement. 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
[2021-09-25 18:55] LABS: Troponin T (5th) Once 115 ng/L (0-15)
[2021-09-25 19:29] LABS: Ammonia 20 umol/L (16-60)
[2021-09-25 20:35] LABS: Hepatitis A Antibody IgM Non-Reactive (Nonreactive); Hepatitis B Core IgM Non-Reactive (Nonreactive); Hepatitis B Surface Antigen Non-Reactive (Nonreactive); Hepatitis C Virus Antibody Non-Reactive (Nonreactive)
[2021-09-25] MEDS: metoprolol tartrate 25 mg Tablet 12.5 MG PO (21:54)
[2021-09-25] MEDS: atorvastatin 40 mg Tablet PO (21:56)
[2021-09-26] VITALS (9 sets, daily range): BP systolic 118–147; BP diastolic 61–82; PULSE 89–95; RESP 16–23; O2SAT 90–97
[2021-09-26] MEDS: FUROsemide 10 mg/mL SDV 4mL 40 MG IVP (04:22)
[2021-09-26 06:03] LABS: Add Urine Microscopic? NO; Charge for UA Resulting for Rev
[2021-09-26 06:23] LABS: Urine Creatinine 10 mg/dL (39-259)
[2021-09-26 06:24] LABS: Bilirubin Urine Neg (Negative); Blood Urine Neg (Negative); Glucose Urine UA Norm (Normal); Ketones Urine Negative (Negative); Leukocyte Esterase Urine Negative (Negative); Nitrate Urine Negative (Negative); Protein Urine Neg (Negative); Urine Appearance Clear (CLEAR); Urine Color Colorless (Yellow); Urobilinogen Urine Norm (Negative); pH Urine 5 (5-7)
[2021-09-26 06:50] LABS: Urea Nitrogen,Urine Random 156 mg/dL
--- NOTE | 2021-09-26 07:12 | PC.NURSE ---
PATIENT ON CONTINUOUS BEDSIDE CARDIAC, BP AND O2 MONITOR.
[2021-09-26 07:59] LABS: Basophils # 0.1 10^3/uL (0.0-0.1); Basophils % 0.8 %; Eosinophils # 0.1 10^3/uL (0.0-0.8); Eosinophils % 1.7 %; Hemoglobin 12.2 g/dL (11.7-16.6); Lymphocytes # 0.5 10^3/uL (0.8-4.8); Mean Corpuscular HGB Conc 30.5 g/dL (30.0-36.0); Mean Corpuscular Hemoglobin 29.7 pg (28.0-34.0); Mean Corpuscular Volume 97.3 fl (80-94); Mean Platelet Volume 10.7 fL (7.4-10.4); Monocytes # 0.6 10^3/uL (0.2-0.9); Monocytes % 9.3 %; Neutrophils % 79.6 %; Nucleated Red Blood Cells % 0 %; Platelet Count 180 10^3/cmm (130-400); Red Blood Count 4.11 10^6/uL (4.1-5.3); White Blood Count 6.5 10^3/uL (4.0-10.0)
[2021-09-26 08:13] LABS: Alanine Aminotransferase 282 U/L (0-41); Albumin Level 3.6 g/dL (3.5-5.2); Alkaline Phosphatase 74 IU/L (40-130); Aspartate Amino Transferase 149 U/L (0-40); Blood Urea Nitrogen 31 mg/dL (8-23); Calcium 7.9 mg/dL (8.5-10.5); Carbon Dioxide 27 mmol/L (22-29); Chloride 103 mmol/L (98-107); Globulin 2.4 g/dL (1.3-4.6); Glucose 111 mg/dL (65-115); Osmolality Calculated 297 mOsm/kg (285-295); Sodium 140 mmol/L (136-145); Total Bilirubin 0.8 mg/dL (0.15-1.2)
[2021-09-26 08:25] LABS: Anion Gap 13.8 (5-19)
[2021-09-26 08:26] LABS: Potassium 3.8 mmol/L (3.5-5.1)
[2021-09-26 08:44] LABS: Troponin T (5th) Once 113 ng/L (0-15)
--- NOTE | 2021-09-26 09:27 | PC.NURSE ---
PATIENT ASKING TO GET OUT OF THE HOSPITAL. I DON'T WANNA BE HERE ANYMORE, I WANT TO GET OUT OF HERE. PATIENT STILL CALM AND COOPERATIVE. DR. EASON AT BEDSIDE AND ALSO AWARE. PT ALSO REFUSING TO TAKE MEDICATIONS.
--- NOTE | 2021-09-26 09:59 | PC.NURSE ---
PATIENT SITTING ON THE EDGE OF THE BED. PATIENT REFUSING TO LET NURSE KNOW IF HE NEEDS TO GET UP AND OUT OF BED. PATIENT EDUCATED ON WHY HE NEEDS TO STAY IN BED. PATIENT A&OX2. CHARGE NURSE AND MD EASON AWARE.
--- NOTE | 2021-09-26 10:07 | PC.NURSE ---
PATIENT OFFERED A RECLINER TO SIT IN, PATIENT REFUSED.
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
--- NOTE | 2021-09-26 19:38 | USCV_ITS ---
Jin Jon Age: 76 Gender: M : 1945 Exam Date: 09/26/2021 06:24 Ordering Phys: Tl Cifuentes MD Technologist: GOGO [place]am [place] [facility] [place]ication: CHF, AV REPLACED BP: 129 / 57 HR: 90 Rhythm: Sinus Technical Quality: Adequate MEASUREMENTS (Male / Female) Normal Values 2D ECHO LV Diastolic Diameter PLAX 4.8 cm 4.2 - 5.9 / 3.9 - 5.3 cm LV Systolic Diameter PLAX 4.1 cm IVS Diastolic Thickness 1.3 cm 0.6 - 1.0 / 0.6 - 0.9 cm IVS Systolic Thickness 1.6 cm LVPW Diastolic Thickness 1.0 cm 0.6 - 1.0 / 0.6 - 0.9 cm LVPW Systolic Thickness 1.4 cm LVOT Diameter 2.0 cm LV Ejection Fraction 2D Teich 30.0 % LV Ejection Fraction MOD 2C 40.6 % LV Ejection Fraction 2C AL 38.7 % LA Diameter 4.2 cm LA Width 4.0 cm LA Height 5.3 cm RA Width 3.8 cm RA Height 5.0 cm Aorta at Sinotubular Diameter 2.5 cm M-MODE MV E Point Septal Separation 0.7 cm DOPPLER AV Peak Velocity 184.8 cm/s LVOT Peak Velocity 63.0 cm/s AV Area Cont Eq vti 1.0 cm squared AV Area Cont Eq pk 1.1 cm squared MV Area PHT 4.1 cm squared MV E' Velocity 51.0 cm/s Mitral E to MV E' Ratio 12.7 Mitral E to LV E' Lateral Ratio 11.9 Mitral E to LV E' Septal Ratio 13.9 TR Peak Velocity 361.3 cm/s TR Peak Gradient 52.2 mmHg TR Mean Velocity 279.3 cm/s TR Mean Gradient 33.1 mmHg TR Velocity Time Integral 128.0 cm TV Peak E Velocity 57.0 cm/s PV Peak Velocity 77.0 cm/s RV Acceleration Time 0.1 s RV Ejection Time 0.2 s RV AcT/ET 0.2 FINDINGS Left Ventricle Normal left ventricular size. LV systolic function is moderately reduced with EF of 35-40%. Moderate global hypokinesis and moderate to severe hypokinesis of the inferolateral wall is seen. Septal motion is consistent with prior surgery. Diastolic function is indeterminate because of paced rhythm Right Ventricle RV is hypokinetic. Pacemaker lead is seen Right Atrium The right atrium is normal in size. Pacemaker lead is noted Left Atrium The left atrium is enlarged Mitral Valve Mild mitral annular calcification without significant stenosis or prolapse. There is trace mitral regurgitation. Aortic Valve Bioprosthetic aortic valve present but not well visualized. Mean gradient across the valve is 7mmHg. DVI is normal and is 0.33 Tricuspid Valve Structurally normal tricuspid valve without significant stenosis. Mild tricuspid regurgitation. Insufficient TR jet to calculate RVSP Pulmonic Valve Not well visualized Pericardium Normal pericardium without effusion. Aorta Normal ascending aorta dimension. CONCLUSIONS Technically limited quality study because of poor ultrasonic windows. LV systolic function is moderately reduced with EF of 35-40%. Above mentioned wall motion abnormalities RV is hypokinetic Left atrium is enlarged Mild mitral annular calcification. Trace mitral regurgitation Bioprosthetic aortic valve noted. DVI is normal and is 0.33 Mild tricuspid regurgitation Compared to prior echocardiogram from 04/19/2014, LV systolic function is decreased now and EF is 35-40% Monico Root MD (Electronically Signed) Final Date: 26 September 2021 11:26 S
== END 2021-09-26 12:56 | disposition left against medical advice (07) | DRG 291 ==
LOC: ER 09-26 11:16 → ER IP 09-26 11:33
PROVIDERS: Internal Medicine; Admitting Provider Internal Medicine; Emergency Provider Emergency Medicine; Visit Provider Internal Medicine
DX: I11.0 Hypertensive heart disease with heart failure (principal); I50.43 Acute on chronic combined systolic (congestive) and diastolic (congestive) heart failure; E87.1 Hypo-osmolality and hyponatremia; N17.9 Acute kidney failure, unspecified; E87.5 Hyperkalemia; R79.82 Elevated C-reactive protein (CRP); M48.02 Spinal stenosis, cervical region; R74.01 Elevation of levels of liver transaminase levels; K74.60 Unspecified cirrhosis of liver; N40.0 Benign prostatic hyperplasia without lower urinary tract symptoms; R09.02 Hypoxemia; N28.1 Cyst of kidney, acquired; I25.10 Atherosclerotic heart disease of native coronary artery without angina pectoris; R77.8 Other specified abnormalities of plasma proteins; R29.6 Repeated falls; E03.8 Other specified hypothyroidism; E78.5 Hyperlipidemia, unspecified; Z86.73 Personal history of transient ischemic attack (TIA), and cerebral infarction without residual deficits; Z95.5 Presence of coronary angioplasty implant and graft; Z95.1 Presence of aortocoronary bypass graft; Z95.2 Presence of prosthetic heart valve; Z95.0 Presence of cardiac pacemaker; Z99.81 Dependence on supplemental oxygen; Z87.891 Personal history of nicotine dependence; Z90.49 Acquired absence of other specified parts of digestive tract
CPT/HCPCS: 36415; 70450; 71045; 71275; 72125; 74177; 76700; 80053; 80074; 81003; 82140; 82570; 83690; 83880; 84145; 84439; 84443; 84484; 84540; 85025; 86140; 87635; 93005; 93306; 94664; J1940; J7030; Q9967